=== PATIENT | female | born 1990 | race Caucasian/White ===

== ENCOUNTER 2016-08-05 16:42 | Inpatient (IN) | payer SELFPAY ==
--- NOTE | ~2016-08-05 | HP ---
Unit #: [id number] #: [id number] Patient: HELENE GUTHRIE [id number] [place] [address] [id number] I MR#: [id number] NAME: HELENE GUTHRIE ROOM: [facility] Age: 25 Sex: F Admission Date: 08/05/2016 : 1990 Attending Physician: Klaus Guthrie M.D. Admitting Physician: Klaus Guthrie M.D. Primary Care Physician: Sarina Stout [facility] HISTORY AND PHYSICAL HISTORY OF PRESENT ILLNESS Helene is a 25-year-old female admitted to [address] [place] [address] on 08/05/2016 for detox from heroin and meth. PAST MEDICAL HISTORY None. PAST SURGICAL HISTORY Tonsillectomy and bilateral ear tube placement. ALLERGIES None. SOCIAL HISTORY Smokes 2-1/2 packs of cigarettes daily. Occasional alcohol use. Daily use of heroin and meth. She is currently single and living with her mother. FAMILY HISTORY Noncontributory. REVIEW OF SYSTEMS CONSTITUTIONAL: No fever or chills. HEENT: Denies any sore throat, ear pain or runny nose. CARDIOVASCULAR: Denies chest pain, irregular heart rhythm or palpitations. CHEST: Denies shortness of breath or cough. No hemoptysis. GASTROINTESTINAL: Denies nausea, vomiting, diarrhea or chronic constipation. ENDOCRINE: Denies history of increased thirst or urination. No recent significant weight loss or gain. GENITOURINARY: Denies dysuria, frequency, or hematuria. SKIN: Denies any rashes. HEMATOLOGIC: Denies history of increased bleeding or bruising. MUSCULOSKELETAL: Denies any hot, swollen joints. No generalized muscle pain. NEUROLOGIC: Denies problems with vision or speech. No frequent, severe headaches. No numbness, tingling or weakness in any extremities. Denies loss of bladder or bowel control. CURRENT MEDICATIONS None. PHYSICAL EXAMINATION GENERAL: Alert, oriented, in no acute distress. Unit #: [id number] #: [id number] Patient: HELENE GUTHRIE VITAL SIGNS: Blood pressure 122/85, heart rate 76, respirations 16, temperature 98.3. HEIGHT: 5 feet 4. WEIGHT: 143 pounds. SKIN: Warm and dry without rash or lesion. HEENT: Normocephalic. TMs not viewed. Oral and nasal passages clear. Conjunctivae clear. PERRLA. EOMs intact. NECK: Supple without lymphadenopathy or thyromegaly. HEART: Regular rate and rhythm without murmur. LUNGS: Clear. ABDOMEN: Soft, nontender, without masses or hepatosplenomegaly. : Not done. EXTREMITIES: No evidence of cyanosis, clubbing or edema. Moves all without focal deficit. NEUROLOGICAL: Grossly within normal limits. Cranial Nerves: II: Visual webb are intact. III, IV AND : Extraocular movements are intact. Pupils are equal, round and reactive to light. V: Facial sensation is grossly normal. VII: Facial movements and expression are normal. VIII: Auditory acuity grossly intact. IX, X: Uvula is midline. Phonation is normal. XI: Patient shrugs shoulders and turns head normally. XII: Tongue protrudes in the midline. Sensory and Motor Function: Sensory and motor sensation is grossly normal. Motor: moves all extremities well. Coordination: Gait is normal. Deep Tendon Reflexes: Intact. IMPRESSION Psychiatric admission. RECOMMENDATIONS PSYCHIATRIC: Per psychiatrist. MEDICAL: No contraindications to participate in facility's activities. MEDICAL PROGNOSIS Good. MEDICAL CONDITION Stable. Dictated by... Arlet Gatica/randi TD: 08/06/2016 15:04 JOB #: [id number] Unit #: [id number] #: [id number] Patient: HELENE GUTHRIE HISTORY AND PHYSICAL Page 1 of 1 X LOLA BENAVIDES APRN X HISTORY AND PHYSICAL
--- NOTE | ~2016-08-05 | PA ---
Unit #: [id number] #: [id number] Patient: HELENE GUTHRIE [id number] [place] [address] [id number] I MR#: [id number] NAME: HELENE GUTHRIE ROOM: P202 Age: 25 Sex: F Admission Date: 08/05/2016 : 1990 Date of Assessment: Attending Physician: Klaus Guthrie M.D. Admitting Physician: Klaus Guthrie M.D. Primary Care Physician: [facility] PSYCHIATRIC ASSESSMENT LOCATION [facility], [address] [place] [address], room #202, bed #1. DATE OF SERVICE 08/06/2016. INFORMANTS The patient and chart both seem reliable. CHIEF COMPLAINT "I guess, I have been using heroin." HISTORY OF PRESENT ILLNESS This is a 25-year-old white female with longstanding history of IV heroin use on a daily basis for at least the last 7 months if not longer as well as methamphetamine abuse and depression. The patient apparently had reportedly overdose "several days ago on heroin," and was seen and treated by the police and then it was cleared, but never received Narcan, so it was unclear how reliable that report is, but regardless still reports of depression, but no suicidal ideation today. She seems motivated for treatment to help get custody of her children back. She has been using about 0.5 g to 4 g a day and more of IV heroin and amphetamine use seems to be more sporadic and there is some peripheral use of alcohol and Xanax, but not anything resembling a consistent basis. The patient complaining of aches and pains, poor energy, poor sleep, GI disturbance, headache, mood issues obviously and restlessness at this time. PAST PSYCHIATRIC HISTORY She denied any overt treatment in the past for any psychiatric issue, but she is complaining of depression and anxiety and now it is unclear if this is substance related or not, but with suicidal ideation. Of late, it is concerning. No history of previous suicide attempts "per patient." FAMILY HISTORY Noncontributory. SOCIAL HISTORY The patient has lost custody of her children. They all with the grandparents, limited in the way of support, has GED education. . MEDICATION HISTORY Nothing. Unit #: [id number] #: [id number] Patient: HELENE GUTHRIE ALLERGIES Include no known drug allergies. SUBSTANCE ABUSE HISTORY As noted above. MENTAL STATUS EXAMINATION General appearance is a limitedly groomed white female, disheveled, limited, cooperation response with interview process. Speech was clear and coherent, but brief. Mood was depressed and anxious with constricted affect. Thought process and content were grossly organized and linear. No overt evidence of psychosis. The patient denied any active SI or HI at this time. The patient's memory was grossly intact. Alert and oriented x4, chronically blunted baseline. Associations were normal. Insight and judgment were poor. ASSETS AND LIABILITIES Assets include previous exposure to detox process. Liabilities include limited support, loss of custody of her children, unemployed . ADMITTING DIAGNOSIS 1. Opiate dependency with withdrawal. 2. Major depressive disorder, recurrent, moderate, given that she has been having major depressive symptoms off and on for several years and never been treated and no active suicidal ideation at this time. PSYCHIATRIC PLAN To continue the patient's admission for safety and stabilization for ongoing detox needs and related mood problems. The patient has been placed on detox protocol appropriately and being monitored carefully with treatment goals being resolution of her symptoms under control, placed in an environment in a monitored fashion and discharge planning most likely in adult community psychiatric resources. ESTIMATED LENGTH OF STAY Approximately 3 to 4 days. Dictated by... Klaus Guthrie M.D. RAYMON/makayla TD: 08/06/2016 17:04 JOB #: [id number] PSYCHIATRIC ASSESSMENT Page 1 of 1 X Klaus Guthrie MD X PSYCHIATRIC ASSESSMENT
--- NOTE | ~2016-08-05 | DS ---
Unit #: [id number] #: [id number] Patient: HELENE GUTHRIE [id number] [place] [address] [id number] I MR#: [id number] NAME: HELENE GUTHRIE ROOM: [facility] Age: 25 Sex: F Admission Date: 08/05/2016 : 1990 Discharge Date: 08/07/2016 Attending Physician: Klaus Guthrie M.D. Primary Care Physician: Sarina Stout [facility] DISCHARGE SUMMARY REASON FOR ADMISSION Heroin dependency with withdrawals as well as methamphetamine use LABORATORY DATA The patient had routine blood work done upon admission that included a CMP that was with normal parameters, with the exception of albumin being slightly low at 3.3. AST and ALT were normal as was alkaline phosphatase. TSH normal at 0.64. Free T4 normal at 0.76. Beta hCG was negative. CBC upon admission was grossly within normal parameters without exception. The patient had a hepatitis panel that was still pending at time of discharge. RPR was nonreactive. Urine toxicology on admission was positive for benzodiazepines, amphetamines, marijuana and opiates. The patient's urinalysis was positive for trace leukocyte esterase, 1+ urobilinogen, 1+ blood, with 4+ bacteria, but no nitrates. HOSPITAL COURSE The patient was admitted for safety and stabilization for ongoing issues with heroin dependency as well as other polysubstance abuse. The patient was put on [facility]'s Detox process accordingly and during her brief admission did show significant signs of withdrawal, tremors, aches, pains, upset stomach, diarrhea, poor sleep. The patient had reportedly had some form of depression previous to her admission in which she had "attempted to overdose on heroin, but apparently that may have been erroneous as she was never given Narcan and recovered without issue. There was some concern about the validity of that account. Regardless, on day of discharge the patient was denying any SI and she had been denying this since she actually came into the hospital, after initial evaluation by the access center. She was asking for discharge, declined any aftercare and the patient was allowed to be discharged home. DISCHARE DIAGNOSIS 1. Opiate dependency with withdrawal 2. Amphetamine stimulant abuse 3. Substance induced mood disorder FOLLOW UP CARE With community resources, although patient declined. She will still be given information about those. DISCHARGE MEDICATIONS None CONDITION AT DISCHARGE Truly unimproved Unit #: [id number] #: [id number] Patient: HELENE GUTHRIE PROGNOSIS Poor given the patient's poor insight into the nature of her detox process DIET Regular ACTIVITY As tolerated with sobriety encouraged. Dictated by... Klaus Guthrie M.D. SB/to TD: 08/07/2016 13:21 JOB #: [id number] DISCHARGE SUMMARY Page 1 of 1 X Klaus Guthrie MD X DISCHARGE SUMMARY
--- NOTE | ~2016-08-05 | CO ---
Unit #: [id number] #: [id number] Patient: HELENE GUTHRIE [id number] [place] [address] [id number] I MR#: [id number] NAME: HELENE GUTHRIE ROOM: [facility] Age: 25 Sex: F Admission Date: 08/05/2016 : 1990 Attending Physician: Klaus Guthrie M.D. Primary Care Physician: [facility] Consultation Date: 08/06/2016 CONSULTATION REPORT Medical consult was requested by Dr. Guthrie and completed on 08/06/2016. HISTORY OF PRESENT ILLNESS Helene reports that she injects IV heroin daily, recently noticed some pain in her left AC in her left hand. There was some concern that she might have an abscess. She reports that this is starting to feel better today. She has not had any redness. No swelling. No warmth. He is able to move her hands normally and has no other complaints. PHYSICAL EXAMINATION CARDIAC: Regular rate and rhythm. No murmurs, gallops, or rubs. RESPIRATORY: Clear to auscultation bilaterally. SKIN: No palpable masses in the left ACR and left hand. She does have some bruising from injection sites. No warmth or redness. ASSESSMENT AND PLAN Possible abscess, left AC in left hand. At this time, I can not palpate any induration. She has no warmth or redness in her left ACR, her left hand. She does have some bruising, but no signs or symptoms of infection. Please monitor closely and notify if symptoms worsen. Dictated by... Susanne Foley A.P.R.N. for Isabel Richardson/makayla TD: 08/06/2016 17:36 JOB #: [id number] CONSULTATION REPORT Page 1 of 1 X SUSANNE BENAVIDES APRN X CONSULTATION REPORT
[~2016-08-05 16:42] MED LIST: ACETAMINOPHEN PO; LORTAB 7.5-5001 TAB PO; NICOTINE TRANSD21 MG EXT; ZYVOX600 MG PO
[2016-08-06 11:22] LABS: BASOPHIL% 0.7 % (0-2.5); DIFF IND NO; EOSINOPHIL# 0.1 X10e3 (0-0.7); EOSINOPHIL% 1.8 % (0.0-7.0); HEMATOCRIT 40.4 % (35.0-45.0); HEMOGLOBIN 13.4 gm/dL (12.0-16.0); LYMPHOCYTE# 2.2 X10e3 (1.0-3.5); LYMPHOCYTE% 31.9 % (17.0-45.0); MEAN CELL VOLUME 88.7 FL (83-96); MEAN CORPUSCULAR HEMOGLOBIN 29.5 PG (28-34); MEAN CORPUSCULAR HGB CONC 33.3 g/dL (30-36); MONOCYTE# 0.3 X10e3 (0-1.0); MONOCYTE% 4.8 % (3.0-12.0); NEUTROPHIL# 4.2 X10e3 (1.5-7.1); NEUTROPHIL% 60.8 % (40-75); PLATELET COUNT 202 X10e3 (140-420); RED BLOOD COUNT 4.55 X10e (3.90-5.30); RED CELL DISTRIBUTION WIDTH 14.2 % (11.0-15.5); WHITE BLOOD COUNT 6.9 X10e3 (4.0-10.5)
[2016-08-06 13:20] LABS: THYROID STIMULATING HORMONE 0.64 uIU/ml (0.34-5.60)
[2016-08-06 13:27] LABS: FREE THYROXIN (T4) 0.76 ng/dL (0.58-1.64)
[2016-08-06 13:29] LABS: ALBUMIN SERUM 3.3 g/dL (3.5-5.0); BILIRUBIN,TOTAL 0.3 mg/dL (0.2-2.0); BUN/CREATININE RATIO 13.75; CALCIUM SERUM 8.9 mg/dL (8.4-10.2); CREATININE SERUM 0.8 mg/dL (0.6-1.4); GLOM FILT RATE Estimated 101.1 mL/min (>60); POTASSIUM 4.5 mmol/L (3.5-5.1); PROTEIN TOTAL SERUM 6.8 g/dL (6.0-8.3)
[2016-08-06 14:09] LABS: URINE APPEARANCE TURBID; URINE BILIRUBIN NEG (NEG); URINE BLOOD 1+ (NEG); URINE COLOR YELLOW; URINE GLUCOSE NEG (NEG); URINE KETONE TRACE (NEG); URINE LEUKOCYTE ESTERASE TRACE (NEG); URINE NITRATE NEG (NEG); URINE PH 5.5 (5-8); URINE PROTEIN NEG (NEG); URINE SPECIFIC GRAVITY 1.023 (1.003-1.035)
[2016-08-06 14:12] LABS: URBCS1 AUWI 0-2 /[HPF] (0-2); URINE BACTERIA AUWI 4+ (NEGATIVE); URINE SQUAMOUS EPITHELIAL CELL FEW /[HPF]
[2016-08-06 14:16] LABS: AMPHETAMINE POS (NEG); BARBITURATES NEG (NEG); BENZODIAZEPINES POS (NEG); COCAINE NEG (NEG); MARIJUANA POS (NEG); OPIATES POS (NEG); TRICYCLIC ANTIDEPRESSANTS NEG (NEG); U METHADONE NEG (NEG)
[2016-08-10 13:47] LABS: HA AB IGM (HEPPAN) Nonreactive (()); HB CORE AB IGM (HEPPAN) Nonreactive (Nonreactive); HB S AG (HEPPAN) Nonreactive (Nonreactive); HEP C AB (HEPPAN) Reactive (Nonreactive)
== END 2016-08-07 10:05 | disposition home or self-care (01) | DRG 897 ==
LOC: P2S 16:42
PROVIDERS: Psychiatry & Neurology Psychiatry
PROC: HZ2ZZZZ Detoxification Services for Substance Abuse Treatment (ICD-10-PCS; principal; 2016-08-05)
DX: F11.23 Opioid dependence with withdrawal (principal); F33.1 Major depressive disorder, recurrent, moderate; L02.512 Cutaneous abscess of left hand; Z72.89 Other problems related to lifestyle; F15.10 Other stimulant abuse, uncomplicated; F11.24 Opioid dependence with opioid-induced mood disorder
CPT/HCPCS: 80053; 80074; 80307; 81003; 84439; 84443; 84703; 85025; 86592; 87522